=== PATIENT | female | born 1955 | race Caucasian/White ===

== ENCOUNTER 2017-12-06 18:59 | Inpatient (IN) | payer MEDICARE, MEDICAID ==
[~2017-12-06] VITALS: Ht 149.9 cm; Wt 57.6 kg
[~2017-12-06 18:59] MED LIST: ALPRAZOLAM; AUGMENTIN 875875 MG PO; BACLOFEN; CARAFATE1 GM PO; CLONAZEPAM 1 MG1 M1 PO; CYCLOBENZAPRINE; DILAUDID PAIN PUMP IMPLANT; DUONEB 2.5-0.5 M3 ML INH; FLOMAX0.4 MG PO; KLOR-CON 1010 MEQ PO; LASIX 20 MG TAB20 MG PO; LEVAQUIN 750 M750 MG PO; MAGOX 400400 MG PO; MORPHINE PAIN PUMP; NEPHROCAPS SOFT1 CAP PO; NICOTINE PATCH1 EAC1 TOP; NORFLEX100 MG PO; OMEPRAZOLE 20 M20 MG PO; PERCOCET 10-321 EACH PO; PERCOCET PO; PERCODAN TABLE1 EACH PO; POTASSIUM20 PO; PREDNISONE 10 M10 MG PO; PRILOSEC 20 MG20 MG PO; PROMETHAZINE/C118 ML PO; PROZAC20 MG PO; SEE COMMENTS; XANAX1 MG PO; [UNRECOGNIZED DRUG - REMARK]
[2017-12-06 19:08] VITALS: BP 100/45
[2017-12-06 19:55] LABS: ABSOLUTE BASOPHILS 0.1 thou/uL (0.0-0.2); ABSOLUTE EOSINOPHILS 0.1 thou/uL (0.0-0.7); ABSOLUTE LYMPHOCYTES 1.5 thou/uL (0.8-5.3); ABSOLUTE MONOCYTES 0.9 thou/uL (0.0-1.2); ABSOLUTE NEUTROPHILS 10.8 thou/uL (1.6-8.1); BASOPHILS 0.4 %; EOSINOPHILS 0.7 %; HEMOGLOBIN 13.2 gm/dL (12.0-15.0); LYMPHOCYTES 11.1 %; MCH 25.6 pg (26.0-34.0); MCHC 32.1 g/dL (28.0-37.0); MCV 79.8 fL (80.0-100.0); MONOCYTES 6.9 %; MPV 7.7 fl. (7.2-11.1); NUCLEATED RBCS 0 /100WBC; PLATELET COUNT* 372 thou/uL (150-400); POLYS 80.9 %; RBC 5.14 mil/uL (4.20-5.00); WBC 13.4 thou/uL (4.0-11.0)
[2017-12-06 20:03] LABS: APTT 31.6 Seconds (25.0-31.3); INR 1.1; PROTIME 10.6 Seconds (9.20-11.50)
[2017-12-06 20:04] LABS: ANION GAP 6 mmol/L (7-16); BUN 14 mg/dL (7-18); CHLORIDE 96 mmol/L (98-107); CO2 36 mmol/L (21-32); GLUCOSE 110 mg/dL (70-99); POTASSIUM 3.1 mmol/L (3.5-5.1); SODIUM 138 mmol/L (136-145)
[2017-12-06 20:12] LABS: PLATELET ESTIMATE ADEQUATE
[2017-12-06 20:18] LABS: ALBUMIN 3.4 g/dL (3.4-5.0); ALKALINE PHOSPHATASE 95 U/L (46-116); LIPASE 58 U/L (73-393); MAGNESIUM 1.7 mg/dL (1.8-2.4); NT-PRO BRAIN NAT PEPTIDE 5420 pg/mL (<300); SGOT 18 U/L (15-37); SGPT 14 U/L (30-65); TOTAL BILIRUBIN 0.3 mg/dL (<0.1-1.0); TOTAL PROTEIN 8.1 g/dL (6.4-8.2); TROPONIN-I LEVEL <0.06 ng/mL (<0.06)
[2017-12-06 20:40] LABS: URINE BILIRUBIN NEGATIVE (Negative); URINE BLOOD NEGATIVE (Negative); URINE CLARITY CLEAR; URINE COLOR YELLOW; URINE GLUCOSE-RANDOM NEGATIVE (Negative); URINE KETONES NEGATIVE (Negative); URINE LEUKOCYTES-REFLEX NEGATIVE (Negative); URINE NITRITE-REFLEX NEGATIVE (Negative); URINE PROTEIN NEGATIVE (Negative); URINE UROBILINOGEN 0.2 E.U./dl (0.2-1.0)
[2017-12-06 21:19] LABS: INFLUENZA A ANTIGEN None Detected (None Detect); INFLUENZA B ANTIGEN None Detected (None Detect)
[2017-12-06 22:58] VITALS: BP 88/49
[2017-12-06 23:30] VITALS: BP 90/54
[2017-12-07 04:31] VITALS: BP 93/57
[2017-12-07 05:17] LABS: HEMATOCRIT 38.6 % (37.0-47.0); MCH 25.1 pg (26.0-34.0); MCHC 31.2 g/dL (28.0-37.0); MCV 80.3 fL (80.0-100.0); MPV 8.2 fl. (7.2-11.1); NUCLEATED RBCS 0 /100WBC; PLATELET COUNT* 375 thou/uL (150-400); RDW-CV 22.2 % (10.5-14.5); WBC 11.6 thou/uL (4.0-11.0)
[2017-12-07 05:57] LABS: ABSOLUTE LYMPHOCYTES 0.3 thou/uL (0.8-5.3); ABSOLUTE NEUTROPHILS 11.3 thou/uL (1.6-8.1); CALCIUM 8.4 mg/dL (8.5-10.1); CREATININE 0.8 mg/dL (0.6-1.3); PLATELET ESTIMATE ADEQUATE; POTASSIUM 3.4 mmol/L (3.5-5.1)
[2017-12-07 05:58] LABS: ANISOCYTOSIS 1+; POIKILOCYTOSIS 1+; TARGET CELLS 1+
[2017-12-07 08:00] VITALS: BP 101/53
[2017-12-07 11:30] VITALS: BP 109/59
--- NOTE | 2017-12-07 12:02 | EKG ---
[place] [address] ELECTROCARDIOGRAM REPORT Name: JOSSELYN TOBAR Room: [address] ADM IN ..#: [id number] Admission: 12/06/17 Attend Phys: Wong Caldera MD Discharge: Date of : 55 Report #: [id number] THIS REPORT FOR: //name// [facility] ED Test Date: 2017-12-06 Test Time: 19:26:39 Pat Name: JOSSELYN TOBAR Department: Room: [facility] Gender: F Gear Lapper: TYLER : 1955 Requested By: Danis Robles Order Number: [id number] MD: Desmond Lee Measurements Intervals [place] Rate: 74 P: 81 RI: 149 QRS: 96 QRSD: 86 T: 58 QT: 407 QTc: 452 Interpretive Statements Sinus rhythm Biatrial enlargement right axis nonspecific t wave changes Compared to ECG 07/18/2017 12:51:38 no change Electronically Signed On 12-07-2017 12:02:[address] JUSTICE by Desmond Lee [email or web address] <ELECTRONICALLY SIGNED> By: Desmond Lee MD, [facility] 12/07/17 1202 25 25 Desmond Lee MD, [facility] /EPI
--- NOTE | 2017-12-07 12:03 | EKG ---
[place] [address] ELECTROCARDIOGRAM REPORT Name: JOSSELYN TOBAR Room: [address] ADM IN .R.#: [id number] Admission: 12/06/17 Attend Phys: Wong Caldera MD Discharge: Date of : 55 Report #: [id number] THIS REPORT FOR: //name// [facility] ED Test Date: 2017-12-06 Test Time: 19:27:25 Pat Name: JOSSELYN TOBAR Department: Room: [address] Gender: F Sales Development Representative: [facility] : 1955 Requested By: Wong Caldera Order Number: [id number] Reading MD: Desmond Lee Measurements Intervals [place] Rate: 74 P: 76 [place]: 150 QRS: 99 QRSD: 109 T: 59 QT: 415 QTc: 461 Interpretive Statements Sinus rhythm Biatrial enlargement right axis nonspecific t wave changes Electronically Signed On 12-07-2017 12:03:09 [employer] by Desmond Lee [email or web address] <ELECTRONICALLY SIGNED> By: Desmond Lee MD, [facility] 12/07/17 1203 1927 26 Desmond Lee MD, [facility] /EPI
[2017-12-07 16:00] VITALS: BP 110/57
[2017-12-07 20:00] VITALS: BP 98/48
[2017-12-08] VITALS: BP 114/62
[2017-12-08 04:00] VITALS: BP 104/55
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
[2017-12-08 08:00] VITALS: BP 111/54
[2017-12-08 13:02] VITALS: BP 120/79
[2017-12-08 16:00] VITALS: BP 84/57
[2017-12-08 20:15] VITALS: BP 91/48
[2017-12-09 00:27] VITALS: BP 92/45
[2017-12-09 03:58] VITALS: BP 97/52
[2017-12-09 05:38] LABS: HEMATOCRIT 36.4 % (37.0-47.0); HEMOGLOBIN 11.2 gm/dL (12.0-15.0); MCH 24.8 pg (26.0-34.0); MCHC 30.8 g/dL (28.0-37.0); MCV 80.4 fL (80.0-100.0); MPV 7.9 fl. (7.2-11.1); RBC 4.53 mil/uL (4.20-5.00); RDW-CV 21.8 % (10.5-14.5); WBC 17.4 thou/uL (4.0-11.0)
[2017-12-09 06:16] LABS: CALCIUM 8.8 mg/dL (8.5-10.1); CREATININE 0.7 mg/dL (0.6-1.3); MAGNESIUM 1.6 mg/dL (1.8-2.4)
[2017-12-09 08:00] VITALS: BP 86/43
[2017-12-09 11:00] VITALS: BP 82/44
[2017-12-09 16:00] VITALS: BP 97/47
[2017-12-09 22:19] VITALS: BP 94/44
[2017-12-10 00:30] VITALS: BP 93/44
[2017-12-10 04:38] VITALS: BP 89/48
[2017-12-10 05:27] LABS: HEMATOCRIT 36.6 % (37.0-47.0); HEMOGLOBIN 11.3 gm/dL (12.0-15.0); MCV 80.7 fL (80.0-100.0); MPV 7.6 fl. (7.2-11.1); RBC 4.53 mil/uL (4.20-5.00); RDW-CV 21.4 % (10.5-14.5); WBC 15.1 thou/uL (4.0-11.0)
[2017-12-10 05:50] LABS: ANION GAP < 0 mmol/L (7-16); BUN 27 mg/dL (7-18); CALCIUM 8.6 mg/dL (8.5-10.1); CHLORIDE 99 mmol/L (98-107); CO2 40 mmol/L (21-32); CREATININE 0.7 mg/dL (0.6-1.3); GLUCOSE 125 mg/dL (70-99); POTASSIUM 3.9 mmol/L (3.5-5.1); SODIUM 138 mmol/L (136-145)
--- NOTE | 2017-12-10 07:50 | CON ---
[facility] [address] [place] [address] CONSULTATION Name: JOSSELYN TOBAR Room: [address] ADM IN M.R.#: [id number] Admission: 12/06/17 Attend Phys: Wong Caldera MD Discharge: Date of : 55 Report #: [id number] THIS REPORT FOR: //name// CC: Wong Geronimoe Shawn DATE OF SERVICE: 12/07/2017 ATTENDING PHYSICIAN: Wong Caldera M.D. REASON FOR EVALUATION: Multifocal pneumonitis, appears to be chronic. HISTORY OF PRESENT ILLNESS: Chart reviewed, patient examined. This is a 62-year-old woman whom I am familiar with, having seen her on a couple different occasions while hospitalized, most recently 06/2017 and 07/2017, prior to that about a year ago. There has been ongoing issues with chronic respiratory complaints, in particular cough, felt to have chronic infiltrates on chest x-ray. She actually did fairly well over the short term after being discharged; however, within the last several weeks developed increasing cough, some of which have been productive. It is not clear that she has had significant dyspnea. She is not on oxygen at this point. She does describe intermittent fevers up to 102. She has had night sweats. She does have anorexia with a 10-pound weight loss. She does describe chronic pain as well for which she has a pain pump that is not being utilized at this point. She notes 2 episodes of accidental overdose and her physician has been hesitant about her medical regimen due to lack of resolution in spite of empiric antibiotics. She was readmitted. Review of cultures on multiple occasions while admitted ____ sputum cultures have been unrevealing. She is currently on combination therapy with ceftriaxone and azithromycin. There is a concern about AFB disease as well. ALLERGIES: LORAZEPAM, CODEINE, PROPOXYPHENE. CURRENT MEDICATIONS: Include enoxaparin, nicotine patch, furosemide, fluoxetine, ceftriaxone, pantoprazole, methylprednisolone, clonazepam, sucralfate, azithromycin, p.r.n. analgesics, antiemetics. PAST MEDICAL HISTORY: Underlying COPD with recurrent pneumonitis, history of chronic hepatitis C, chronic pain syndrome requiring a pump, does have some hearing deficits as well. SOCIAL HISTORY: Current smoker, utilizes tobacco, history of ethanol excess. SOCIAL HISTORY: None. FAMILY HISTORY: [place] [address] CONSULTATION Name: JOSSELYN TOBAR ALTHEA Room: [address] IN [facility]#: [id number] Admission: 12/06/17 Attend Phys: Wong Caldera MD Discharge: Date of : 55 Report #: [id number] REVIEW OF SYSTEMS: Denies significant abdominal-related complaints. She has not had diarrhea. Does admit to some joint pain including her hands, which she attributes to arthritis. She has a disabling temporomandibular joint disease as well. PHYSICAL EXAMINATION: GENERAL: She appears chronically ill, older than her stated age, undernourished. VITAL SIGNS: Temperature 97.9, pulse 62, respirations 20, blood pressure 101/53. SKIN: Warm. There are exogenous changes consistent with corticosteroid use. NECK: Supple. LUNGS: Diminished overall, few scattered coarse breath sounds. HEART: Regular. She does have a soft systolic murmur. ABDOMEN: Soft, nontender, nondistended. There is no peritoneal signs. GENITOURINARY AND RECTAL: Deferred. LABORATORY DATA: Blood cultures sterile thus far. Most recent CBC: White count of 11.6, slightly down from admission at 13.4; H and H 12.0 and 28.6, platelets of 375. Differential does show some target cells, lymphopenia, total count of 300. Electrolytes: Sodium 141, potassium 3.4, chloride 98, bicarbonate is 34. BUN and creatinine is 16 and 0.8. Estimated GFR of 73. Sputum culture is pending. Gram stain suggests mixed gaston. CT of the chest and followup chest x-ray showed multifocal infiltrates compatible with multifocal pneumonitis, mild mediastinal hilar adenopathy. Influenza antigen was negative. Urinalysis unremarkable. Lactic acid of 1.2. Liver function tests unremarkable. Albumin of 3.4. Total protein of 8.1. ASSESSMENT: Pneumonitis, apparently multifocal. We will continue empiric therapy as prescribed and noted AFB smears are pending. We will continue isolation, although I think the evidence is mixed in terms of possibility that this may ____ TB spot. Thank you, we will follow. <ELECTRONICALLY SIGNED> By: Cristian Steele MD 12/10/17 0750 1131 1949Cristian Steele MD /nt
[2017-12-10 09:00] VITALS: BP 92/51
[2017-12-10 20:09] VITALS: BP 96/59
[2017-12-11 00:30] VITALS: BP 90/42
[2017-12-11 04:30] VITALS: BP 86/44
--- NOTE | 2017-12-11 08:45 | PROC ---
[address] [address] PROCEDURE REPORT Name: AMADOUJOSSELYNTIFFANIE OH Room: [address] ADM IN M.R.#: [id number] Admission: 12/06/17 Attend Phys: Wong Caldera MD Discharge: Date of : 55 Report #: [id number] THIS REPORT FOR: //name// CC: Wong Escobar [facility] Cristian Steele MD DATE OF SERVICE: 12/10/2017 PROCEDURE: Inpatient pulmonary bronchoscopy. ATTENDING PHYSICIAN: Wong Caldera MD. The patient is located in room 200. PREOPERATIVE DIAGNOSIS: Pulmonary infiltrates, chronic. POSTOPERATIVE DIAGNOSES: Pulmonary infiltrates, chronic, no endobronchial lesions; moderate chronic bronchitis, no suspicious lesions. COMPLICATIONS: None. INDICATION FOR PROCEDURE: The patient is a 62-year-old female, a recent smoker with multiple medical problems. She has had hepatitis C in the past. She has been immune suppressed in the past. She has had pulmonary infiltrates. She was admitted to the hospital. She was tried to put in TB isolation. She has not been able to cough up any sputums for AFB. She did previously have a left lower lobe lesion, which appears to have resolved on her CAT scan, but she still has diffuse infiltrates in the right upper lobe and some in the left lower lobe. I discussed this with Radiology before the procedure and we decided that the right upper lobe posterior segment would be the best option to use. DESCRIPTION OF PROCEDURE: The indications, benefits, risks of bronchoscopy and possible biopsy were explained to the patient and her sister. They understood and agreed. Informed consent was obtained. Prior to the procedure, the patient has multiple allergies. She was given fentanyl 50 mcg and then Versed 5 mg slow IV push pre- and intraoperatively. O2 was at 3 liters per nasal cannula and O2 sat did not drop below 98%. The patient's nares, she had very boggy nasal turbinates bilaterally and could not pass the scope down either right or left nasal turbinates or nasopharyngeal airway. We put an oral airway and went to the oropharynx and her vocal cords were normal. The vocal cords oppose normally. Trachea and conchis were normal. Conchis was sharp. Left lung was normal without any endobronchial lesions or mucosal abnormalities. She had some mild mucosal erythema and edema and a few thin clear secretions. [place] [address] PROCEDURE REPORT Name: JOSSELYN TOBAR ALTHEA Room: [address] IN [facility]#: [id number] Admission: 12/06/17 Attend Phys: Wong Caldera MD Discharge: Date of : 55 Report #: [id number] the same. No endobronchial lesions were noted. No suspicious lesions. Looked at the right upper lobe posterior segment, there was no narrowing and again, some moderate secretions were noted. Specimens obtained from the right upper lobe posterior segment include a microbrush and a bronchial wash for Gram stain, C and S, AFB with smear and culture, fungal smear with culture. Slides x 3 and a second bronchial wash were sent for cytology. I am going to split up the bronchial wash and see if we can do a silver stain on that also for other organisms. All lobes were lavaged until clear. The patient tolerated the procedure quite well without any complications. Heart rate stayed in the 60s and O2 saturation was 98%-99%. We will watch her in the hospital in the next couple of days and make sure her AFB with smears are negative and then proceed from there. No complications to the above procedure. <ELECTRONICALLY SIGNED> By: Jairo Calabrese MD 12/11/17 0845 1214 1755Antbryson Calabrese MD /nt
[2017-12-11 09:00] VITALS: BP 75/43
[2017-12-11 11:48] LABS: HEMATOCRIT 35.5 % (37.0-47.0); HEMOGLOBIN 11.1 gm/dL (12.0-15.0); MCHC 31.3 g/dL (28.0-37.0); MCV 79.8 fL (80.0-100.0); MPV 7.4 fl. (7.2-11.1); NUCLEATED RBCS 0 /100WBC; PLATELET COUNT* 420 thou/uL (150-400); RBC 4.44 mil/uL (4.20-5.00); RDW-CV 20.8 % (10.5-14.5)
[2017-12-11 11:53] VITALS: BP 90/46
[2017-12-11 12:08] LABS: ALBUMIN 2.4 g/dL (3.4-5.0); CALCIUM 8.3 mg/dL (8.5-10.1); CREATININE 0.7 mg/dL (0.6-1.3); POTASSIUM 3.5 mmol/L (3.5-5.1); TOTAL BILIRUBIN 0.1 mg/dL (<0.1-1.0); TOTAL PROTEIN 5.8 g/dL (6.4-8.2)
[2017-12-11 12:18] LABS: ABSOLUTE LYMPHOCYTES 0.7 thou/uL (0.8-5.3); ABSOLUTE MONOCYTES 0.9 thou/uL (0.0-1.2); ABSOLUTE NEUTROPHILS 16.4 thou/uL (1.6-8.1); ANISOCYTOSIS 1+; HYPOCHROMASIA 1+; PLATELET ESTIMATE INCREASED; POIKILOCYTOSIS 1+
--- NOTE | 2017-12-11 13:15 | CNG ---
[address] [address] CYTO-NONGYN REPORT PROCEDURE Name: FELICIA TOBAR ALTHEA Room: [address]-P [facility] IN M.R.#: [id number] Admission: 12/06/17 Date of : 55 Discharge: Report #: [id number] Path Case #: [id number] CYTOPATHOLOGY REPORT COLLECTION DATE: 12/10/2017 RECEIVED DATE: 12/10/2017 SUBMITTING PHYS: Dr. Jairo Calabrese OTHER PHYS: Dr. Wong Escobar, ROX[place] CLINICAL HISTORY: COPD exacerbation, PNA/bronch, rule out tumor versus chronic infection. SPECIMEN(S) RECEIVED: A.Bronchial wash, RUL B.Bronchial brushings, RUL * * * * * * * * * * * * FINAL DIAGNOSIS: A. Bronchial wash, RUL: - No malignant cells identified. - Predominantly bronchial epithelial cells and alveolar macrophages, and few squamous cells and inflammatory cells. - Properly controlled GMS/silver stain is negative for Pneumocystis and fungal organisms. B. Bronchial brushings, RUL: - No malignant cells identified. - Abundant bronchial epithelial cells and few alveolar macrophages and inflammatory cells. (MISBAH:; 12/11/2017) PATHOLOGIST: Phill Gonzales M.D. REPORT ELECTRONICALLY SIGNED BY: Phill Gonzales M.D. DATE/TIME: 12/11/2017 13:14 * * * * * * * * * * * * GROSS PATHOLOGY: A. Bronchial wash, RUL: The specimen is submitted unfixed, labeled "Green Felicia Althea". Received by the Cytology Department is 20 mL of cloudy white fluid. One ThinPrep slide was prepared for pap stain. One ThinPrep slide prepared for silver stain. B. Bronchial brushings, RUL: The specimen is labeled "GreenIonna Althea" and consists of three fixed slides. (clt 12.10.2017) COTTON WEIGHER OPERATOR(S): MIRA Hampton(ASCP) INITIAL CPT CODE(S): A; 31259, 10671 B; 89585 Professional services performed [place] [address] CYTO-NONGYN REPORT PROCEDURE Name: FELICIA TOBAR Room: [address] IN [facility].#: [id number] Admission: 12/06/17 Date of : 55 Discharge: Report #: [id number] Path Case #: [id number] [place] [address]. Technical services performed by [facility] at [address] [place] [address], [address], [place] [address]. [address], [address] [place] [address] PHONE: [phone] DIRECTOR: Kory Bay M.D. * * * END OF REPORT * * *
[2017-12-11 16:03] VITALS: BP 79/43
[2017-12-11 20:02] VITALS: BP 92/50
[2017-12-12] VITALS: BP 91/50
[2017-12-12 04:00] VITALS: BP 100/51
[2017-12-12 05:43] LABS: ABSOLUTE LYMPHOCYTES 0.9 thou/uL (0.8-5.3); ABSOLUTE NEUTROPHILS 21.3 thou/uL (1.6-8.1); BASOPHILS 0.1 %; HEMATOCRIT 35.6 % (37.0-47.0); HEMOGLOBIN 11.1 gm/dL (12.0-15.0); LYMPHOCYTES 4.1 %; MCH 24.8 pg (26.0-34.0); MCHC 31.2 g/dL (28.0-37.0); MCV 79.6 fL (80.0-100.0); MONOCYTES 4.4 %; MPV 7.7 fl. (7.2-11.1); NUCLEATED RBCS 0 /100WBC; PLATELET COUNT* 463 thou/uL (150-400); POLYS 91.4 %; RBC 4.47 mil/uL (4.20-5.00); RDW-CV 21.3 % (10.5-14.5); WBC 23.3 thou/uL (4.0-11.0)
[2017-12-12 06:02] LABS: ALBUMIN 2.4 g/dL (3.4-5.0); CALCIUM 8.3 mg/dL (8.5-10.1); CREATININE 0.7 mg/dL (0.6-1.3); POTASSIUM 4.3 mmol/L (3.5-5.1); TOTAL BILIRUBIN 0.1 mg/dL (<0.1-1.0); TOTAL PROTEIN 5.7 g/dL (6.4-8.2)
[2017-12-12 06:09] LABS: PREALBUMIN 24.6 mg/dL (18.0-35.7)
[2017-12-12 09:30] VITALS: BP 93/50
[2017-12-12] MEDS ORDERED: SINGULAIR 10 MG10 M1 PO (15:10)
[2017-12-12] MEDS ORDERED: CEFUROXIME500 MG PO (15:14)
[2017-12-12] MEDS ORDERED: AZITHROMYCIN 2250 MG PO (15:15)
[2017-12-12] MEDS ORDERED: PREDNISONE 10 M10 MG PO (15:16)
[2017-12-12 15:18] VITALS: BP 93/50
== END 2017-12-12 16:41 | disposition home or self-care (01) | DRG 177 ==
LOC: M.ERS 18:59 → M.2W 20:54 → M.TBA-ER 20:54 → M.2W 22:48
PROVIDERS: Family Medicine; Internal Medicine; ADMIT Internal Medicine
PROC: 02HV33Z Insertion of Infusion Device into Superior Vena Cava, Percutaneous Approach (ICD-10-PCS; principal; 2017-12-08)
PROC: 0BDC8ZX Extraction of Right Upper Lung Lobe, Via Natural or Artificial Opening Endoscopic, Diagnostic (ICD-10-PCS; 2017-12-10)
DX: J69.0 Pneumonitis due to inhalation of food and vomit (principal); E43 Unspecified severe protein-calorie malnutrition; J96.20 Acute and chronic respiratory failure, unspecified whether with hypoxia or hypercapnia; R65.11 Systemic inflammatory response syndrome (SIRS) of non-infectious origin with acute organ dysfunction; I50.32 Chronic diastolic (congestive) heart failure; J44.1 Chronic obstructive pulmonary disease with (acute) exacerbation; J98.01 Acute bronchospasm; F41.9 Anxiety disorder, unspecified; G89.4 Chronic pain syndrome; R59.0 Localized enlarged lymph nodes; H91.90 Unspecified hearing loss, unspecified ear; B18.2 Chronic viral hepatitis C; F17.210 Nicotine dependence, cigarettes, uncomplicated; Z90.710 Acquired absence of both cervix and uterus; Z87.828 Personal history of other (healed) physical injury and trauma; Z79.899 Other long term (current) drug therapy; Z88.5 Allergy status to narcotic agent; Z68.25 Body mass index [BMI] 25.0-25.9, adult; Z71.6 Tobacco abuse counseling; Z88.8 Allergy status to other drugs, medicaments and biological substances; Z80.1 Family history of malignant neoplasm of trachea, bronchus and lung

== ENCOUNTER → 2018-10-11 | Outpatient (CLI) | payer MEDICARE, MEDICAID ==
[~2018-10-11] MED LIST changes: +AZITHROMYCIN 2250 MG PO; +CEFUROXIME500 MG PO; +SINGULAIR 10 MG10 M1 PO
== END ==
LOC: M.LAB 10-02 12:00 → M.CT 10-02 13:30 → M.LAB 12:00 → M.CT 12:00
DX: R91.8 Other nonspecific abnormal finding of lung field (principal)

== ENCOUNTER 2018-12-09 18:10 | Inpatient (IN) | payer MEDICARE, MEDICAID ==
[~2018-12-09] VITALS: Ht 149.9 cm; Wt 48.5 kg
[2018-12-09 18:21] VITALS: BP 116/64
[2018-12-09 19:07] LABS: HEMATOCRIT 37.5 % (37.0-47.0); MCH 28.5 pg (26.0-34.0); MCV 88.9 fL (80.0-100.0); MPV 7.7 fl. (7.2-11.1); NUCLEATED RBCS 0 /100WBC; PLATELET COUNT* 418 thou/uL (150-400); RBC 4.22 mil/uL (4.20-5.00); RDW-CV 15.3 % (10.5-14.5); WBC 20.6 thou/uL (4.0-11.0)
[2018-12-09 19:14] LABS: ANION GAP 8 mmol/L (7-16); BUN 10 mg/dL (7-18); CALCIUM 9.1 mg/dL (8.5-10.1); CHLORIDE 96 mmol/L (98-107); CO2 34 mmol/L (21-32); CREATININE 0.8 mg/dL (0.6-1.3); GLUCOSE 116 mg/dL (70-99); SODIUM 138 mmol/L (136-145)
[2018-12-09 19:18] LABS: APTT 35.9 Seconds (25.0-31.3)
[2018-12-09 19:21] LABS: ABSOLUTE LYMPHOCYTES 0.6 thou/uL (0.8-5.3); ABSOLUTE MONOCYTES 0.4 thou/uL (0.0-1.2); ABSOLUTE NEUTROPHILS 19.6 thou/uL (1.6-8.1); PLATELET ESTIMATE ADEQUATE
[2018-12-09 19:24] LABS: ALBUMIN 2.5 g/dL (3.4-5.0); ALKALINE PHOSPHATASE 106 U/L (46-116); NT-PRO BRAIN NAT PEPTIDE 1421 pg/mL (<300); SGOT 26 U/L (15-37); SGPT 29 U/L (30-65); TOTAL BILIRUBIN 0.3 mg/dL (<0.1-1.0); TOTAL PROTEIN 7.2 g/dL (6.4-8.2); TROPONIN-I LEVEL <0.06 ng/mL (<0.06)
[2018-12-09 19:33] LABS: BE 5.7 mmol/L (-2 to +3); PO2 62.2 mmHg (75.0-100.0); pH 7.367 (7.340-7.450)
[2018-12-09 19:36] LABS: PCO2 58.1 mmHg (35.0-45.0)
[2018-12-09 19:54] LABS: INFLUENZA A ANTIGEN None Detected (None Detect); INFLUENZA B ANTIGEN None Detected (None Detect)
[2018-12-09 21:40] VITALS: BP 89/51
[2018-12-09 21:47] VITALS: BP 100/49
--- NOTE | 2018-12-09 22:00 | NUR ---
PATIENT ARRIVED TO UNIT @ 2147. PT ABLE TO ABULATE SELF TO ICU BED. PT BP 100/49 (66). 500ML NS BOLUS INFUSING. PT STATES SHE HAS GENERALIZED PAIN ALL OVER AND FEELS LIKE SHE IS GETTING A PANIC ATTACK. SHE WAS UNABLE TO TAKE HER USUAL NIGHT MEDICATIONS B/C SHE WAS IN THE ER. WILL CALL TO RESUME NIGHT MEDS. PT ON THE PHONE WITH SISTER, NO FAMILY PRESENT AT BEDSIDE. PT IS HUNGERY WILL GET PT BOX LUNCH FOR HER. NO OTHER CONCERNS AT THIS TIME.
[2018-12-09 22:36] VITALS: BP 81/49
[2018-12-09 23:00] VITALS: BP 94/54
[2018-12-10] VITALS (17 sets, daily range): BP systolic 81–111; BP diastolic 40–79
--- NOTE | 2018-12-10 04:31 | NUR ---
PATIENT PROGRESSING TOWARDS GOALS. CURRENTLY SLEEPING. BLOOD PRESSURE HAS STAYED >60. PT REFUSED SECOND IV. WANTS TO GET OUT OF THE ICU AND GO TO A BIGGER ROOM. PT USED BEDSIDE COMMODE WELL. STAND BY ASSIST. SHE ATE PT LUNCH BOX WITH NO COMPLICATIONS. REMAINS ON 3L NC. WILL CONTINUE TO MONITOR. CALL LIGHT IN PLACE. NO FURTHER CONCERNS AT THIS TIME.
[2018-12-10 14:57] LABS: URINE BILIRUBIN NEGATIVE (Negative); URINE BLOOD NEGATIVE (Negative); URINE CLARITY CLEAR; URINE COLOR YELLOW; URINE GLUCOSE-RANDOM TRACE (Negative); URINE KETONES NEGATIVE (Negative); URINE LEUKOCYTES-REFLEX NEGATIVE (Negative); URINE NITRITE-REFLEX NEGATIVE (Negative); URINE PROTEIN NEGATIVE (Negative); URINE SPECIFIC GRAVITY 1.015 (1.005-1.030); URINE UROBILINOGEN 0.2 E.U./dl (0.2-1.0)
[2018-12-10 15:07] LABS: AMP/METHAMP Negative (Negative); BARBITURATES Negative (Negative); BENZODIAZEPINES POSITIVE (Negative); COCAINE Negative (Negative); METHADONE Negative (Negative); OPIATES POSITIVE (Negative); PCP Negative (Negative); THC Negative (Negative)
--- NOTE | 2018-12-10 16:14 | NUR ---
PT CARE ASSUMED AFTER REPORT. ASSESSMENT COMPLETE. SR ON MONITOR. PT EASILY CONFUSED. VERY LABILE. GOES FROM SMILING TO TEARS WITH IN A FEW SECONDS. UP WITH STB TO BSC. UDS AND MRSA SWAB SENT TO LAB. IV FLUIDS INFUSING. PT TRANSFERED TO ROOM 312. REPORT GIVEN TO RAHEEM CELESTIN.
--- NOTE | 2018-12-10 16:22 | NUR ---
PATIENT TRANSFERRED FROM ICU TO ROOM 312. REPORT RECEIVED FROM RAHEEM GREEN. NO COMPLAINTS AT THIS TIME. PATIENT REQUESTING VANILLA ENSURE. IVF AND SCHED ABX INFUSING. PATIENT CAME UP TO ROOM VIA WHEELCHAIR. [address]
--- NOTE | 2018-12-10 16:29 | EKG ---
[place] [address] ELECTROCARDIOGRAM REPORT Name: JOSSELYN TOBAR Room: [address] ADM IN M.R.#: [id number] Admission: 12/09/18 Attend Phys: Sunshine Qiu Discharge: Date of : 55 Report #: [id number] THIS REPORT FOR: //name// [facility] ED Test Date: 2018-12-09 Test Time: 18:39:01 Pat Name: JOSSELYN TOBAR Department: Room: [facility] Gender: F Clam Grader: EMANUEL : 1955 Requested By: Carlee Lepe Order Number: [id number] MD: Delroy Howard Measurements Intervals [place] Rate: 89 P: 72 [place]: 169 QRS: 109 QRSD: 118 T: 11 QT: 362 QTc: 441 Interpretive Statements Sinus rhythm Right atrial enlargement Left posterior fascicular block Nonspecific T-wave abnormality Compared to ECG 12/06/2017 19:27:25 Left posterior fascicular block now present Electronically Signed On 12-10-2018 16:29:10 MEDICAL PHYSICS PROFESSOR by Delroy Howard [email or web address] <ELECTRONICALLY SIGNED> By: Delroy Howard MD, FACC 12/10/18 1629 1839 1839 Delroy Howard MD, [facility] /EPI
[2018-12-11] VITALS (15 sets, daily range): BP systolic 93–112; BP diastolic 40–67
[2018-12-11 02:10] LABS: GLYCOHEMOGLOBIN (HGB A1C) 5.1 % (4.8-5.6)
--- NOTE | 2018-12-11 02:16 | NUR ---
INITAL ASSESMENT COMPLETED AT 1945. PT PLEASANT AND COOPERATIVE, USING CALL LIGHT PROPERLY. PT ORIENTED TO PERSON, PLACE AND SITUATION. PT UP TO BEDSIDE COMMODE WITH FRANSICO ASSISTANCE. PT CALLS OUT FREQUENTLY AT TIMES REQUESTING MULTIPLE ITEMS. PT FOLLOWS INSTRUCTIONS BUT DOES NOT REMEMBER THEM. BED ALARM IS ON FOR HIGH FALL RISK.
[2018-12-11 04:15] LABS: ABSOLUTE BASOPHILS 0.1 thou/uL (0.0-0.2); ABSOLUTE LYMPHOCYTES 0.4 thou/uL (0.8-5.3); ABSOLUTE MONOCYTES 0.6 thou/uL (0.0-1.2); ABSOLUTE NEUTROPHILS 24.4 thou/uL (1.6-8.1); BASOPHILS 0.2 %; HEMATOCRIT 36.1 % (37.0-47.0); HEMOGLOBIN 11.1 gm/dL (12.0-15.0); LYMPHOCYTES 1.5 %; MCH 28.4 pg (26.0-34.0); MCHC 30.7 g/dL (28.0-37.0); MCV 92.6 fL (80.0-100.0); MONOCYTES 2.2 %; MPV 7.6 fl. (7.2-11.1); NUCLEATED RBCS 0 /100WBC; PLATELET COUNT* 413 thou/uL (150-400); POLYS 96.1 %; RDW-CV 15.7 % (10.5-14.5); WBC 25.4 thou/uL (4.0-11.0)
[2018-12-11 05:08] LABS: CALCIUM 8.4 mg/dL (8.5-10.1); CREATININE 0.8 mg/dL (0.6-1.3); MAGNESIUM 1.5 mg/dL (1.8-2.4); POTASSIUM 3.8 mmol/L (3.5-5.1)
--- NOTE | 2018-12-11 05:58 | NUR ---
PT CONTINUED ON O2 AT 3 LITERS PER NASAL CANULA TO MAINTAIN O2 SAT > 94%. PT HAS COARSE CRACKLES HEARD THROUGHOUT LUNGS. PT HAS LOOSE PRODUCTIVE COUGH. SPUTUM NOT SEEN. PT COUGHS INTO TISSUE AND DISCARDS IN TRASH. PT CONTINUED ON IV FLUIDS AND IV ANTIBIOTICS. PT CONTINUES TO RECIEVE SCHEDULED BREATHING TREATMENTS. PT'S WBC'S THIS AM > 20,000. PT AFEBRILE. HEART RATE AND BLOOD PRESSURE WITHIN NORMAL LIMITS. NO ACUTE CHANGES DURING SHIFT, WILL CONTINUE PLAN OF CARE.
[2018-12-11 09:22] LABS: BE -0.3 mmol/L (-2 to +3); PO2 95.7 mmHg (75.0-100.0)
[2018-12-11 09:28] LABS: PCO2 59.9 mmHg (35.0-45.0); pH 7.278 (7.340-7.450)
[2018-12-11 12:38] LABS: BE 1.7 mmol/L (-2 to +3); PO2 84.8 mmHg (75.0-100.0)
[2018-12-11 12:41] LABS: PCO2 64.6 mmHg (35.0-45.0)
--- NOTE | 2018-12-11 15:24 | NUR ---
CRITICAL ABG VALUES CALLED TO PULMONARY, ORDERS TO TRANSFER TO ICU. BIPAP CHANGES COMMUNICATED TO RN WELL RT. ALERT AND ORIENTED X 4 AT TRANSFER. PATIENTS SISTER CALLED TO NOTIFY OF TRANSFER.
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
--- NOTE | 2018-12-11 16:31 | NUR ---
I have reviewed the documentation by HEIDY GORDON from TODAY 12/11/18 and I concur with it. ANNA FLORES
--- NOTE | 2018-12-11 18:00 | NUR ---
PT TRANSFERED TO ICU. PT PLACED ON BIPAP. PT ON 3L NC FOR MEALS. PT UP STAND BY TO BSC. INTAKE AND OUPUT CHARTED. VSS.
[2018-12-12] VITALS (23 sets, daily range): BP systolic 92–118; BP diastolic 49–64
--- NOTE | 2018-12-12 05:11 | NUR ---
PT. PROGRESSING TOWARDS GOALS. HAS TOLERATED BIPAP THROUGHOUT THE MAJORITY OF SHIFT WITH 3 10-15 MIN BREAKS PROVIDED. ABG DRAWN THIS A.M. IV'S REMAIN SALINE LOCKED. UP TO BEDSIDE COMMODE STAND BY ASSIST. NO COMPLAINTS OF PAIN, CALL LIGHT IN REACH, WILL CONTINUE TO MONITOR.
[2018-12-12 05:14] LABS: BE 10.2 mmol/L (-2 to +3); PO2 78.1 mmHg (75.0-100.0); pH 7.369 (7.340-7.450)
--- NOTE | 2018-12-12 08:20 | CON ---
[address] [address] CONSULTATION Name: AMADOUJOSSELYNTIFFANIE [place] Room: [address] ADM IN M.R.#: [id number] Admission: 12/09/18 Attend Phys: Sunshine Qiu Discharge: Date of : 55 Report #: [id number] THIS REPORT FOR: //name// CC: Azam Adame Marilyn Carlson DATE OF SERVICE: 12/10/2018 ATTENDING PHYSICIAN: Marilyn Carlson MD PRIMARY CARE PHYSICIAN: I do not have a primary care physician here at this time. LOCATION: She is in the ICU bed 5. INDICATION FOR CONSULTATION: COPD, chronic right middle lobe and right lower lobe infiltrates and previous negative bronchoscopy. HISTORY OF PRESENT ILLNESS: The patient is a 63-year-old female, current smoker with multiple medical problems. She was admitted to the Intensive Care Unit late last night after a 5-day history of increasing cough and shortness of breath. The patient was on some antibiotics and a steroid taper after being seen by her primary care physician. She was seen in the Emergency Room Department. She was more hypoxic. She is normally on 2 liters. She is up to 4 or 5 liters and then placed in the ICU. She states she feels better today, but still has cough and congestion. Her blood pressure was mildly soft. She is not on any pressors though. She is not sure whether she is up-to-date on vaccinations at this time. She denies any sick or ill contacts. No history of recent travel. She does have a pain pump, but she denies altered mental status or any change in her mental status with aspiration. I was asked to see her. PAST MEDICAL HISTORY: She was in the hospital in 11/2017 with more or less the same symptoms and the same infiltrate. I performed fiberoptic bronchoscopy on her 12/10/2017. She had no endobronchial lesion. She had moderate erythema and edema of her right middle lobe and right lower lobe, brushings and washings were negative for AFB, fungus and cultures were negative. She had a Rhodotorula, which was in her fungal culture and I did not treat that. She had a Staph epidermidis in her brush less than 10,000 and again I did not treat that. She was clinically improved with antibiotics and breathing treatments. Unfortunately, she still continues to smoke. The patient has moderate to moderately severe COPD. She is oxygen dependent at home and not steroid dependent. She has a pain pump. She has had problems with narcotic overdose and overuse in the past and chronic dyspnea at home. ALLERGIES: SHE HAS ALLERGIES OR INTOLERANCE TO CODEINE, [place], [place] [address] CONSULTATION Name: JOSSELYN TOBAR Room: [address] IN M.R.#: [id number] Admission: 12/09/18 Attend Phys: Sunshine Qiu Discharge: Date of : 55 Report #: [id number] PROPOXYPHENE, WHICH ALL GIVE HER NAUSEA. MEDICATIONS: Reported medications include DuoNeb treatments 4 times a day at home and then also Dilaudid pain pump 1 dose implant as directed, omeprazole 20 mg once daily, sucralfate 1 gram q.i.d., clonazepam 1 mg b.i.d., fluoxetine, Prozac 20 mg daily, potassium chloride 10 mEq daily, furosemide 20 mg daily, montelukast 10 mg at bedtime and then the prednisone dose was 10 mg daily on a taper. OTHER PAST MEDICAL AND PAST SURGICAL HISTORY: She has had history of perforated gastric ulcers. 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 Other medical and surgical history includes history of hepatitis C, hysterectomy in the past and rhabdomyolysis. She has had one surgery on the right ear and two surgeries on the left ear. She has had a hysterectomy and a perforated gastric ulcer with exploratory lap and also a contusion of the left hip. She had fiberoptic bronchoscopy by Dr. Love on 12/10/2017 at [facility]. Negative AFB, fungus and cytology. FAMILY HISTORY: Negative for premature cardiopulmonary disease. SOCIAL HISTORY: The patient still smokes cigarettes about 1/2-1 pack a day. She states the last time she smoked was a week ago. She denies any alcohol use at this time, but had previous alcohol use and abuse within the last 2-3 years. She had hep C along with it. She lives on her own at this time with oxygen at 2 liters. REVIEW OF SYSTEMS: A 14-point review of systems reviewed and negative except for pertinent positives noted in the HPI. PHYSICAL EXAMINATION: VITAL SIGNS: Blood pressure is 110/60 on no pressors, heart rate 80, respirations are 16 and her sat on 3 liters is 97%. She is 5 feet tall, weight is 42 kilograms or 90 pounds and her BMI is 19. HEENT: Nares and pharynx are clear. NECK: Supple without nodes. CHEST: Shows a few rhonchi and expiratory wheeze in the right lung base. Left chest shows a few rhonchi. CARDIOVASCULAR: Regular rate and rhythm without murmur, gallop or rub. Heart rate is in the 80s. ABDOMEN: Soft, without masses or megaly. EXTREMITIES: No calf tenderness. No cyanosis, clubbing or edema. NEUROLOGIC: Grossly intact, albeit she is somewhat weak at about 2+/5+, but can move around in bed and get her head and her [place] [address] CONSULTATION Name: AMADOUJOSSELYN ALTHEA Room: [address] IN [facility].#: [id number] Admission: 12/09/18 Attend Phys: Sunshine Qiu Discharge: Date of : 55 Report #: [id number] LABORATORY DATA: From 12/09/2018 late in the evening, hemoglobin is 12, white count is 20,600, normal differential, RDW is 15.3 and platelet count is normal at 418,000. Absolute neutrophil count is 19,000. No increase in eosinophils. Sodium is 138, potassium is 4.0, chloride is 96, carbon dioxide is 34, BUN is 10, creatinine 0.8 and glucose is 116. AST and ALT are within normal limits and then albumin is 2.5. Blood gas ordered yesterday afternoon or evening in the Emergency Room Department on 2 liters showed a pO2 of 62, a pH of 7.37, pCO2 is 58, bicarbonate is 33 and a sat was 89%. Carboxyhemoglobin was elevated at 2.3%. Chest x-ray and CT of the chest shows right middle lobe and right lower lobe infiltrate, COPD and hyperinflation, has some reactive hyperplasia in her lymph nodes about 1.5 cm in the right peritracheal and the right hilar lymph nodes. Again, no endobronchial lesions were seen on previous bronchoscopy. IMPRESSION: 1. Moderately severe to severe chronic obstructive pulmonary disease with chronic right middle lobe infiltrate and previous negative bronchoscopy. 2. Severe chronic obstructive pulmonary disease with chronic tobacco use. 3. Hypoxemia with carboxyhemoglobinemia. 4. CO2 retention secondary to chronic obstructive pulmonary disease. 5. History of chronic hepatitis C and immune suppression. PLAN: We will check immunoglobulins again. I think she has been seen by Infectious Disease. She is on vancomycin and Zosyn as well as breathing treatments. We will add oral and inhaled medications to help with her COPD. I again told the patient that if she does not quit smoking, she will kill herself from her cardiopulmonary disease. She is having more CO2 retention at this time. We will follow up on her blood gas and see where we are at. I do not think she needs another bronchoscopy at least at this time and certainly she will need another followup CT of the chest in about 8 weeks and see how her airways look at that time also. We will see what sputum culture grows and proceed from there. Overall guarded prognosis. We may need to do some outpatient PFTs if we ever get her stable enough and consider room air exercise oximetry and see how much she desaturates. Thanks again for allowing us to participate in this lady's care. We will follow up along with you and see how she progresses. <ELECTRONICALLY SIGNED> By: Jairo Calabrese MD 12/12/18 0820 [id number] [id number] Calabrese MD /[facility]anna
--- NOTE | 2018-12-12 10:00 | NUR ---
PATIENTIS ALERT AND ORIENTED. VITAL SIGNS WITHIN NORMAL RANGE. O2 SATS >92% WITH NASAL CANNULA. SHE IS WEARING BIPAP WHEN ASLEEP AND NASAL CANNULA AT 3L WHEN AWAKE. TOLERATING REGULAR DIET. PT HAD TWO BOWEL MOVEMENTS. PT VOIDING PER BEDSIDE COMMODE. SKIN INTEGRITY INTACT, ENCOURAGED TO TURN POSITIONS FREQUENTLY IN BED.
[2018-12-12 10:28] LABS: HEMATOCRIT 35.3 % (37.0-47.0); HEMOGLOBIN 10.9 gm/dL (12.0-15.0); MCH 27.9 pg (26.0-34.0); MCV 89.9 fL (80.0-100.0); NUCLEATED RBCS 0 /100WBC; PLATELET COUNT* 487 thou/uL (150-400); RBC 3.92 mil/uL (4.20-5.00); RDW-CV 15.8 % (10.5-14.5); WBC 24.4 thou/uL (4.0-11.0)
[2018-12-12 10:36] LABS: CALCIUM 8.7 mg/dL (8.5-10.1); CREATININE 0.8 mg/dL (0.6-1.3); POTASSIUM 3.3 mmol/L (3.5-5.1)
[2018-12-12 10:56] LABS: ABSOLUTE LYMPHOCYTES 0.7 thou/uL (0.8-5.3); ABSOLUTE MONOCYTES 0.2 thou/uL (0.0-1.2); ABSOLUTE NEUTROPHILS 23.4 thou/uL (1.6-8.1); ANISOCYTOSIS 1+; PLATELET ESTIMATE INCREASED; POIKILOCYTOSIS 1+
--- NOTE | 2018-12-12 16:26 | NUR ---
PATIENT IS ALERT AND ORIENTED TO TIME, PLACE AND PERSON. HER VITALS ARE WITHIN NORMAL LIMITS . O2 SATS MAINTAINED >92% .HAS HER BIPAP ON WHEN SLEEPING AND NASAL CANNULA WHEN AWAKE. SHE IS TOLERATING REGULAR DIET. POTASSIUM SUPPLEMENT S ADMINISTERED ACCORDING TO THE PROTOCOL. INTAKE AND OUTPUT DOCUMENTED. SHE IS VOIDING PER BEDSIDE COMMODE.
[2018-12-13] VITALS (10 sets, daily range): BP systolic 85–124; BP diastolic 49–94
--- NOTE | 2018-12-13 06:55 | NUR ---
Pt reports melatonin helped her sleep overnight. VSS. Voiding without difficulty on BSC. Tolerated BIPAP overnight. K+ replaced, will recheck lab later this am. Will continue to monitor.
[2018-12-13 10:41] LABS: ABSOLUTE LYMPHOCYTES 0.6 thou/uL (0.8-5.3); ABSOLUTE MONOCYTES 0.5 thou/uL (0.0-1.2); ABSOLUTE NEUTROPHILS 20.1 thou/uL (1.6-8.1); BASOPHILS 0.1 %; HEMATOCRIT 35.5 % (37.0-47.0); LYMPHOCYTES 2.6 %; MCH 27.9 pg (26.0-34.0); MCHC 30.9 g/dL (28.0-37.0); MCV 90.1 fL (80.0-100.0); MONOCYTES 2.3 %; MPV 7.1 fl. (7.2-11.1); NUCLEATED RBCS 0 /100WBC; PLATELET COUNT* 497 thou/uL (150-400); RBC 3.94 mil/uL (4.20-5.00); RDW-CV 15.8 % (10.5-14.5); WBC 21.2 thou/uL (4.0-11.0)
[2018-12-13 11:14] LABS: ANION GAP < 0 mmol/L (7-16); BUN 26 mg/dL (7-18); CALCIUM 9.2 mg/dL (8.5-10.1); CHLORIDE 99 mmol/L (98-107); CO2 34 mmol/L (21-32); CREATININE 0.9 mg/dL (0.6-1.3); GLUCOSE 156 mg/dL (70-99); POTASSIUM 3.9 mmol/L (3.5-5.1); SODIUM 128 mmol/L (136-145)
[2018-12-13 11:33] LABS: NT-PRO BRAIN NAT PEPTIDE 2087 pg/mL (<300)
[2018-12-14] VITALS (8 sets, daily range): BP systolic 82–104; BP diastolic 46–70
--- NOTE | 2018-12-14 06:18 | NUR ---
VSS. PT C/O RIGHT EAR PAIN AND HEADACHE, PARTIALLY RELIEVED WITH PRN TYLENOL. PT REFUSED BIPAP LAST NIGHT, HAS DENIED SOA AND MAINTAINS O2 SAT >92% ON 3L PER NC. PT TURNS SELF INDEPENDENTLY IN BED. CALL LIGHT WITHIN REACH.
[2018-12-14 09:33] LABS: BE 5.2 mmol/L (-2 to +3); PO2 110.5 mmHg (75.0-100.0); pH 7.358 (7.340-7.450)
[2018-12-14 09:36] LABS: PCO2 58.5 mmHg (35.0-45.0)
--- NOTE | 2018-12-14 13:04 | NUR ---
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
[2018-12-15] VITALS: BP 87/50
--- NOTE | 2018-12-15 03:33 | NUR ---
ASSUMED PT CARE AT 1930. ASSESSMENT COMPLETED CHARTED. C/O CHRONIC PAIN, EAR PAIN, AND THROAT PAIN. BP WAS IN THE LOWER 80/40, GOT ORDER TO GIVE FLUID BOLUS. STARTED BOLUS AND IV INFILTRATED AND WAS DIFFICULT TO RESTART IV. AFTER 6 TRIES FINALLY GOT ANOTHER IV STARTED AND FINISHED IV BOLUS AND ANTIBIOTICS. PT RESTING IN BED AT THIS TIME. WILL CONTINUE TO MONITOR.
[2018-12-15 04:00] VITALS: BP 74/36
[2018-12-15 08:10] VITALS: BP 78/47
--- NOTE | 2018-12-15 10:42 | NUR ---
ASSUMED CARE OF PT THIS AM AROUND 07- CASINO SHIFT MANAGER IN PLACE ORDERED, TRACING SR- UPON ASSESSMENT PT NOTED OT BE RESTING IN BED, EYES CLOSED- PT ARROUSABLE BUT GROGGY THIS AM- BP LOW AT 78/47 THIS AM, O2 SAT 100% ON 3L VIA NC- PT DENIES ANY DIZZINESS- CONTINENT OF BOWEL AND BLADDER- SBA WITH TRANSFERS FOR SAFETY- LCTA, DIMINISHED IN BASES- ABD SOFT/FLAT/NON-TENDER, BS X4 QUADS- LAST BM REPORTED X2 DAYS AGO- IV NOTED TO LEFT FA AND RIGHT FA INTACT- IV ABT INFUSSING THIS AM PRESCRIBED- BLOOD SUGARS MONITORED ORDERED- CALL LIGHT AND PERSONAL BELONGINGS WITH IN REACH- HOURLT ROUNDS IN PLACE R/T SAFETY/NEEDS- ALL NEEDS MET AT THIS TIME-WCTM
[2018-12-15 11:39] VITALS: BP 82/41
[2018-12-15 13:16] LABS: HEMATOCRIT 38.5 % (37.0-47.0); HEMOGLOBIN 11.9 gm/dL (12.0-15.0); MCH 27.8 pg (26.0-34.0); MCV 89.7 fL (80.0-100.0); MPV 7.1 fl. (7.2-11.1); NUCLEATED RBCS 0 /100WBC; PLATELET COUNT* 525 thou/uL (150-400); RBC 4.29 mil/uL (4.20-5.00); RDW-CV 15.7 % (10.5-14.5)
[2018-12-15 13:41] LABS: ABSOLUTE MONOCYTES 0.8 thou/uL (0.0-1.2); ABSOLUTE NEUTROPHILS 18.2 thou/uL (1.6-8.1); ATYPICAL LYMPHS 2 %; PLATELET ESTIMATE ADEQUATE
[2018-12-15 13:42] LABS: ALBUMIN 2.6 g/dL (3.4-5.0); CALCIUM 8.3 mg/dL (8.5-10.1); CREATININE 0.9 mg/dL (0.6-1.3); POTASSIUM 4.2 mmol/L (3.5-5.1); TOTAL BILIRUBIN 0.4 mg/dL (<0.1-1.0); TOTAL PROTEIN 6.4 g/dL (6.4-8.2)
[2018-12-15 15:36] LABS: URINE BILIRUBIN NEGATIVE (Negative); URINE BLOOD NEGATIVE (Negative); URINE CLARITY CLEAR; URINE COLOR YELLOW; URINE GLUCOSE-RANDOM NEGATIVE (Negative); URINE KETONES NEGATIVE (Negative); URINE LEUKOCYTES NEGATIVE (Negative); URINE NITRITE NEGATIVE (Negative); URINE PROTEIN NEGATIVE (Negative); URINE SPECIFIC GRAVITY 1.015 (1.005-1.030); URINE UROBILINOGEN 0.2 E.U./dl (0.2-1.0)
[2018-12-15 16:04] VITALS: BP 84/42
--- NOTE | 2018-12-15 17:37 | NUR ---
PT PAUL RESTING IN BED- WILD LIFE MANAGER IN PLACE ORDERED, TRACING SR- IV NOTED TO RIGHT FA AND LEFT FA INTACT AND SL- BP CURRENTLY AT 84/42 POST 1L BOLUS THIS SHIFT- PT REPORTS BP TO BE NORMALLY LOW, ASYMPTOMATIC AND PHYSICAIN AWARE- FAIR PO INTAKE NOTED THIS SHIFT WITH MEASL, BS MONITORED ORDERED- TYLENOL X2 THIS SHIFT AT 1112, AND 1723 FOR C/O EAR ACHE- UA COLLECTED AND SENT TO LAB FOR TESTING ORDERED- IV VANC AND ZOYSN D/C'D THIS SHIFT- CALL LIGHT AND PERSONAL BELONGINGS WITH IN REACH- PT MAKES NEEDS KNOWN- ALL NEEDS MET AT THIS TIME-WCTM
[2018-12-15 20:00] VITALS: BP 98/54
[2018-12-16] VITALS: BP 107/57; BP 87/44
--- NOTE | 2018-12-16 02:47 | NUR ---
ASSUMED PT CARE AT 1930. ASSESSMENT COMPLETED CHARTED. UP AD DWIGHT TO BSC AND BACK TO BED. NO C/O PAIN AT THIS TIME. ABLE TO MAKE NEEDS KNOWN. BP STILL HANGING AROUND THE 80-90'S, ASYMPTOMATIC, DOCTOR AWARE. PT RESTING IN BED AT THIS TIME. WILL CONTINUE TO MONITOR.
[2018-12-16 04:00] VITALS: BP 104/62
[2018-12-16 08:00] VITALS: BP 95/52
[2018-12-16 12:00] VITALS: BP 94/49
[2018-12-16] MEDS ORDERED: CEFDINIR300 MG PO (13:52)
[2018-12-16] MEDS ORDERED: NICOTINE TRANSD14 M1 TRANSDERM (14:04)
[2018-12-16] MEDS ORDERED: CIPRODEX OTIC7.5 ML OTIC (14:05)
[2018-12-16 14:18] VITALS: BP 94/49
--- NOTE | 2018-12-16 15:12 | NUR ---
VSS, ASSUMED CARE IN THE AM, ASSESSMENT PERFORMED AND CHARTED FALL PRECAUTIONS IN PLACE AND CALL LIGHT IN REACH, PT IS A&O4 ON 3L NC AND IS TRACING SR ON THE MONITOR, PT STATES PAIN IN HER BACK, PT IS UP AD DWIGHT AND HER GOAL IS TO IMPROVE BREATHING AND SIT UP IN CHAIR, D/C TO HOME, AT THIS TIME I HAVE BEEN GIVEN D/C PAPERS, PRINTED D/C PAPERS, GAVE MED SCRIPTS AND PROVITED D/C PAPERS, PT IV AND TELE MONITOR TAKEN OFF, PT WAS TAKEN DOWN BY WHEEL CHAIR BY STAFF, ALL BELONGINGS GATHERED AND PLACED WITH PT, HOURLY ROUNDS COMPLETED.
== END 2018-12-16 15:00 | disposition home or self-care (01) | DRG 871 ==
LOC: M.ERS 18:10 → M.TBA-ER 20:36 → M.ICU 20:36 → M.3W 12-10 15:11 → M.ICU 12-11 14:29 → M.2W 12-14 13:00
PROVIDERS: Internal Medicine; Internal Medicine Pulmonary Disease; Nurse Practitioner Family; ADMIT Internal Medicine
PROC: 5A09357 Assistance with Respiratory Ventilation, Less than 24 Consecutive Hours, Continuous Positive Airway Pressure (ICD-10-PCS; principal; 2018-12-11)
PROC: 5A09357 Assistance with Respiratory Ventilation, Less than 24 Consecutive Hours, Continuous Positive Airway Pressure (ICD-10-PCS; 2018-12-12)
PROC: 5A09357 Assistance with Respiratory Ventilation, Less than 24 Consecutive Hours, Continuous Positive Airway Pressure (ICD-10-PCS; 2018-12-13)
PROC: 5A09357 Assistance with Respiratory Ventilation, Less than 24 Consecutive Hours, Continuous Positive Airway Pressure (ICD-10-PCS; 2018-12-14)
DX: A41.9 Sepsis, unspecified organism (principal); J96.21 Acute and chronic respiratory failure with hypoxia; J96.22 Acute and chronic respiratory failure with hypercapnia; J15.9 Unspecified bacterial pneumonia; J44.0 Chronic obstructive pulmonary disease with (acute) lower respiratory infection; G93.40 Encephalopathy, unspecified; J44.1 Chronic obstructive pulmonary disease with (acute) exacerbation; E87.1 Hypo-osmolality and hyponatremia; G89.29 Other chronic pain; K21.9 Gastro-esophageal reflux disease without esophagitis; F41.9 Anxiety disorder, unspecified; F17.210 Nicotine dependence, cigarettes, uncomplicated; R65.20 Severe sepsis without septic shock; B18.2 Chronic viral hepatitis C; H91.90 Unspecified hearing loss, unspecified ear; Z90.710 Acquired absence of both cervix and uterus; Z88.5 Allergy status to narcotic agent; Z88.8 Allergy status to other drugs, medicaments and biological substances; Z99.81 Dependence on supplemental oxygen

== ENCOUNTER 2019-06-14 13:02 | Inpatient (IN) | payer MEDICARE, MEDICAID ==
[~2019-06-14] VITALS: Ht 152.4 cm; Wt 46.4 kg
[~2019-06-14 13:02] MED LIST changes: +CEFDINIR300 MG PO; +CIPRODEX OTIC7.5 ML OTIC; -NEPHROCAPS SOFT1 CAP PO; +NICOTINE TRANSD14 M1 TRANSDERM; +OMEPRAZOLE 20 M20 M1 PO; -PRILOSEC 20 MG20 MG PO; +RENAL CAPS SOFTG1 MG PO
[2019-06-14 13:03] VITALS: BP 103/45
[2019-06-14] MEDS ORDERED: VENTOLIN HFA 1818 GM INH (13:11)
[2019-06-14] MEDS ORDERED: BREO ELLIPTA 21 EACH INH (13:11)
[2019-06-14 13:34] LABS: HEMOGLOBIN 12.9 gm/dL (12.0-15.0); MCH 30.2 pg (26.0-34.0); MCHC 33.1 g/dL (28.0-37.0); MCV 91.4 fL (80.0-100.0); MPV 7.3 fl. (7.2-11.1); NUCLEATED RBCS 0 /100WBC; PLATELET COUNT* 331 thou/uL (150-400); RBC 4.27 mil/uL (4.20-5.00); RDW-CV 16.2 % (10.5-14.5); WBC 21.7 thou/uL (4.0-11.0)
[2019-06-14 13:45] LABS: ANION GAP 11 mmol/L (7-16); BUN 16 mg/dL (7-18); CALCIUM 8.9 mg/dL (8.5-10.1); CHLORIDE 95 mmol/L (98-107); CO2 27 mmol/L (21-32); CREATININE 0.9 mg/dL (0.6-1.3); GLUCOSE 69 mg/dL (70-99); POTASSIUM 3.3 mmol/L (3.5-5.1); SODIUM 133 mmol/L (136-145)
[2019-06-14 13:46] LABS: INR 1.1; PROTIME 10.9 Seconds (9.20-11.50)
[2019-06-14 13:50] LABS: ANTI-Xa-UNFRACTIONATED HEP 7.362; PO2 80.4 mmHg (75.0-100.0); pH 7.362 (7.340-7.450)
[2019-06-14 13:55] LABS: ALBUMIN 2.8 g/dL (3.4-5.0); ALKALINE PHOSPHATASE 84 U/L (46-116); LIPASE 34 U/L (73-393); NT-PRO BRAIN NAT PEPTIDE 277 pg/mL (<300); SGOT 50 U/L (15-37); SGPT 57 U/L (30-65); TOTAL BILIRUBIN 0.6 mg/dL (<0.1-1.0); TOTAL PROTEIN 7.7 g/dL (6.4-8.2); TROPONIN-I LEVEL <0.06 ng/mL (<0.06)
[2019-06-14 14:07] LABS: ABSOLUTE LYMPHOCYTES 1.1 thou/uL (0.8-5.3); ABSOLUTE MONOCYTES 1.5 thou/uL (0.0-1.2); ABSOLUTE NEUTROPHILS 19.1 thou/uL (1.6-8.1); ANISOCYTOSIS Occasional; PLATELET ESTIMATE ADEQUATE
[2019-06-14 14:59] VITALS: BP 89/43
[2019-06-14 15:29] LABS: CREATININE 0.8 mg/dL (0.6-1.3); MAGNESIUM 1.5 mg/dL (1.8-2.4)
[2019-06-14 15:31] LABS: POTASSIUM 2.9 mmol/L (3.5-5.1)
[2019-06-14 20:00] VITALS: BP 88/50
[2019-06-14 22:00] VITALS: BP 101/50
[2019-06-15] VITALS: BP 86/39
[2019-06-15 04:00] VITALS: BP 90/54
[2019-06-15 04:50] LABS: HEMATOCRIT 32.1 % (37.0-47.0); MCH 29.8 pg (26.0-34.0); MCHC 32.2 g/dL (28.0-37.0); MCV 92.5 fL (80.0-100.0); MPV 7.2 fl. (7.2-11.1); RBC 3.47 mil/uL (4.20-5.00); RDW-CV 16.4 % (10.5-14.5); WBC 16.2 thou/uL (4.0-11.0)
[2019-06-15 04:56] LABS: HEMOGLOBIN 10.3 gm/dL (12.0-15.0)
[2019-06-15 05:00] VITALS: BP 93/40
[2019-06-15 05:10] LABS: ALBUMIN 2.1 g/dL (3.4-5.0); CREATININE 0.8 mg/dL (0.6-1.3); MAGNESIUM 1.8 mg/dL (1.8-2.4); POTASSIUM 3.3 mmol/L (3.5-5.1); TOTAL BILIRUBIN 0.2 mg/dL (<0.1-1.0); TOTAL PROTEIN 5.9 g/dL (6.4-8.2)
[2019-06-15 12:19] VITALS: BP 97/53
[2019-06-15 18:28] VITALS: BP 102/57
[2019-06-15 20:00] VITALS: BP 101/53
[2019-06-16 00:30] VITALS: BP 107/53
[2019-06-16 04:30] VITALS: BP 104/53
[2019-06-16 05:19] LABS: ABSOLUTE LYMPHOCYTES 0.3 thou/uL (0.8-5.3); ABSOLUTE MONOCYTES 0.6 thou/uL (0.0-1.2); ABSOLUTE NEUTROPHILS 17.1 thou/uL (1.6-8.1); BASOPHILS 0.1 %; HEMOGLOBIN 9.8 gm/dL (12.0-15.0); LYMPHOCYTES 1.5 %; MCH 30.2 pg (26.0-34.0); MCHC 32.6 g/dL (28.0-37.0); MCV 92.6 fL (80.0-100.0); MONOCYTES 3.2 %; MPV 7.4 fl. (7.2-11.1); NUCLEATED RBCS 0 /100WBC; PLATELET COUNT* 342 thou/uL (150-400); POLYS 95.2 %; RBC 3.24 mil/uL (4.20-5.00); RDW-CV 16.3 % (10.5-14.5); WBC 17.9 thou/uL (4.0-11.0)
[2019-06-16 08:00] VITALS: BP 126/66
--- NOTE | 2019-06-16 10:17 | CON ---
[address] [address] CONSULTATION Name: JOSSELYN TOBAR Room: [address] IN M.R.#: [id number] Admission: 06/14/19 Attend Phys: Gregorio Clarke, Discharge: Date of : 55 Report #: [id number] THIS REPORT FOR: //name// CC: Usha Clarke HISTORY OF PRESENT ILLNESS: This is a 64-year-old female patient with previous history of pneumonia, who presented to the hospital with increasing shortness of breath and cough that was associated with some discomfort in the right-sided ribs of few days' duration. She also according to her, she had drenching sweats. She has a background history of COPD. She is hard of hearing and she did not have her hearing aid with her. She looks anxious during my visit. She reported these symptoms started a few days ago, although she did not have fever. She denied any sick contacts. She told me that she had some difficulty swallowing in the past and they had to stretch her throat, although she denied active symptoms suggest aspiration. She was hospitalized in this facility in the past and record indicated that she had previous right-sided infiltrate and she had a bronchoscopy that was unrevealing. At baseline, she is on 2 liter oxygen. She has a background history of chronic pain. She has a pain pump. PAST MEDICAL HISTORY: She has previous hospitalization with right-sided infiltrate. She had a fiberoptic bronchoscopy in November of this year. No endobronchial lesion, although signs of inflammation. The workup was negative for culture, AFB and fungus. She responded with antibiotics. She has history of smoking and continues to smoke. She has COPD, oxygen dependent, but not steroid dependent and she has chronic pain. She is on pain pump. ALLERGIES: LORAZEPAM, PROPOXYPHENE, AND CODEINE. PAST MEDICAL AND SURGICAL HISTORY: Includes history of alcohol use, IV drug use in the past, hepatitis C, previous head injury, left ear surgery, right ear surgery, hysterectomy, recurrent urinary tract infection, and perforated ulcer surgery. FAMILY HISTORY: Reviewed with the patient, noncontributory. SOCIAL HISTORY: She continues to smoke half a pack per day, does not drink alcohol excessively now a days and no history of drug abuse at this point. REVIEW OF SYSTEMS: Positive for change in appetite, malaise, weakness and drenching night sweats, although no fever. She reported history of sometime difficult swallowing and is hard of hearing. She has history of shortness of breath with sputum production of thick green and dior, but no blood, no hemoptysis, no nausea, no vomiting, no bleeding from any orifice. She reported some dysuria or frequency. She denied any leg swelling or neck pain or calf tenderness. She denied any seizures or syncope, loss of consciousness. She denied any other symptoms. All systems reviewed with [place] [address] CONSULTATION Name: JOSSELYN TOBAR Room: [address] IN ..#: [id number] Admission: 06/14/19 Attend Phys: Gregorio Clarke, Discharge: Date of : 55 Report #: [id number] other than as mentioned above. PHYSICAL EXAMINATION: VITAL SIGNS: On examination, she is on 2 liters oxygen with saturation more than 90%, blood pressure 93/40. She is afebrile. GENERAL: Looked anxious, awake, alert, hard of hearing. HEENT: Head normocephalic, atraumatic. Pupils reactive to light. ORAL CAVITY: Moist mucous membrane. Mallampati of 2. NECK: Full range of movement. No masses felt. Trachea central. CHEST: Diminished air movement bilaterally with prolonged expiratory phase and wheezes. She has rhonchi in the right base with coarse breathing. HEART: S1, S2, no murmur. ABDOMEN: Benign, soft, lax, nontender, positive bowel sounds. EXTREMITIES: Lower extremity: No edema, no calf tenderness. NEUROLOGIC: Moving 4 extremities spontaneously. No focal weakness. Cranial nerves grossly normal. PSYCHIATRIC: Mood and affect anxious. SKIN: No rash. LYMPHATICS: No palpable lymph node. LABORATORY DATA: Her chest x-ray showed right lower lobe infiltrate. Her white blood count is 21.7, hemoglobin 12.9 and platelets of 331. ABGs, 7.36/51/80 and this was done on 3 liters oxygen. INR of 1.1. IMPRESSION: 1. Nmrdy-rv-djrwljb respiratory failure. 2. Chronic obstructive pulmonary disease exacerbation. 3. Pulmonary infiltrate. 4. Pneumonia. 5. Dysphagia. 6. Suspected aspiration into the airways. PLAN: At this point, the patient will be treated for COPD exacerbation with steroids, schedule nebulization treatment. I would continue the antibiotics. I will order a followup chest x-ray for the morning. We will do a repeat swallow evaluation. I consulted speech pathology. Continue her Singulair, symptomatic cough management, inhaled steroids, monitor fluid status and avoid fluid overload. We will continue to follow along with you. Thank you for the consult. Discussed with the patient and RN. <ELECTRONICALLY SIGNED> By: Sohail Anglin MD 06/16/19 1017 0722 [id number] bang Subramanian
[2019-06-16 12:15] VITALS: BP 109/58
--- NOTE | 2019-06-16 13:09 | EKG ---
[place] [address] ELECTROCARDIOGRAM REPORT Name: JOSSELYN TOBAR Room: [address] ADM IN M.R.#: [id number] Admission: 06/14/19 Attend Phys: Gregorio Clarke, Discharge: Date of : 55 Report #: [id number] THIS REPORT FOR: //name// [facility] ED Test Date: 2019-06-14 Test Time: 13:11:47 Pat Name: JOSSELYN TOBAR Department: Room: [facility] Gender: F Tire Wrapper: : 1955 Requested By: Gamal Greene Order Number: [id number] MD: Desmond Lee Measurements Intervals [place] Rate: 111 P: 76 MI: 129 QRS: 106 QRSD: 80 T: 19 QT: 353 QTc: 480 Interpretive Statements Sinus tachycardia Supraventricular bigeminy Consider right atrial enlargement Right axis deviation Abnormal R-wave progression, late transition Compared to ECG 12/09/2018 18:39:01 Atrial premature complex(es) now present Sinus rhythm no longer present Electronically Signed On 06-16-2019 13:08:51 CDT by Desmond Lee [email or web address] <ELECTRONICALLY SIGNED> By: Desmond Lee MD, [facility] 06/16/19 1308 1311 1311 Desmond Lee MD, [facility] /EPI
[2019-06-16] MEDS ORDERED: PREDNISONE 10 M10 MG PO (13:57)
[2019-06-16] MEDS ORDERED: AUGMENTIN 875-1 EACH PO (13:58)
[2019-06-16 13:59] VITALS: BP 109/58
== END 2019-06-16 16:30 | disposition home or self-care (01) | DRG 177 ==
LOC: M.ERS 13:02 → M.TBA-ER 14:24 → M.2W 14:24
PROVIDERS: Emergency Medicine; ADMIT Family Medicine
DX: J15.6 Pneumonia due to other Gram-negative bacteria (principal); J96.22 Acute and chronic respiratory failure with hypercapnia; J96.21 Acute and chronic respiratory failure with hypoxia; E43 Unspecified severe protein-calorie malnutrition; J44.1 Chronic obstructive pulmonary disease with (acute) exacerbation; E87.1 Hypo-osmolality and hyponatremia; F17.210 Nicotine dependence, cigarettes, uncomplicated; K21.9 Gastro-esophageal reflux disease without esophagitis; R13.10 Dysphagia, unspecified; B19.20 Unspecified viral hepatitis C without hepatic coma; Z87.11 Personal history of peptic ulcer disease; Z88.5 Allergy status to narcotic agent; Z88.8 Allergy status to other drugs, medicaments and biological substances; Z90.710 Acquired absence of both cervix and uterus; Z68.20 Body mass index [BMI] 20.0-20.9, adult; Z79.899 Other long term (current) drug therapy; Z71.6 Tobacco abuse counseling

== ENCOUNTER → 2019-07-09 | Outpatient (CLI) | payer MEDICARE, MEDICAID ==
[~2019-07-09] MED LIST changes: +AUGMENTIN 875-1 EACH PO; +BREO ELLIPTA 21 EACH INH; +VENTOLIN HFA 1818 GM INH
== END ==
LOC: M.RAD 08:56
DX: Z12.31 Encounter for screening mammogram for malignant neoplasm of breast (principal)

== ENCOUNTER → 2021-08-10 | Outpatient (CLI) | payer MEDICARE, MEDICAID | LOC: M.RAD 08-08 13:30 | PROVIDERS: ATTEND Family Medicine | DX: Z12.31 Encounter for screening mammogram for malignant neoplasm of breast (principal); M85.88 Other specified disorders of bone density and structure, other site; M18.0 Bilateral primary osteoarthritis of first carpometacarpal joints; M19.041 Primary osteoarthritis, right hand; M19.072 Primary osteoarthritis, left ankle and foot; M19.071 Primary osteoarthritis, right ankle and foot; M20.12 Hallux valgus (acquired), left foot; M20.11 Hallux valgus (acquired), right foot; Z78.0 Asymptomatic menopausal state ==